=== PATIENT | male | born 2000 | race Caucasian/White ===

== ENCOUNTER 2021-09-08 01:25 | Outpatient (CLI) | payer SELFPAY | END 2021-09-08 01:26 | disposition EMS.NT | LOC: EMS 01:25 | DX: S61.011A Laceration without foreign body of right thumb without damage to nail, initial encounter (principal); W25.XXXA Contact with sharp glass, initial encounter; Y93.89 Activity, other specified; Y92.009 Unspecified place in unspecified non-institutional (private) residence as the place of occurrence of the external cause ==

== ENCOUNTER 2022-06-12 18:28 | Emergency (ER) | payer OTHER ==
--- NOTE | 2022-06-12 19:41 | XRAY Report ---
PROCEDURE: Chest 1 View X-Ray INDICATIONS: cough with soa TECHNIQUE: One view of the chest was acquired. COMPARISON: None. FINDINGS: Surgical changes and devices: None. Lungs and pleura: Subtle infiltrate in the left upper lobe suspicious for pneumonia. No pleural effus ions or pneumothorax. Mediastinum: Mediastinal contours appear normal. Heart size is normal. Bones and chest wall: No suspicious bony lesions. Overlying soft tissues appear unremarkable. IMPRESSION: Suspect left upper lobe pneumonia. Reviewed by: Cj Ku MD on 06/12/2022 7:40 PM PDT Approved by: Cj Ku MD on 06/12/2022 7:40 PM PDT Station ID: [id number]
[2022-06-12] MEDS ORDERED: ONDANSETRON 4 MG/2 ML VIAL IVP STA (20:20)
[2022-06-12] MEDS ORDERED: KETOROLAC 60 MG/2 ML VIAL IM STA (20:20)
[2022-06-12 20:22] VITALS: BP 106/73
[2022-06-12] MEDS ORDERED: ONDANSETRON ODT 4 MG Prepack 2 TL PRN (20:22)
[2022-06-12] MEDS ORDERED: HYDROcod/ACET 5/325 Prepack 4 PO STA (20:22)
--- NOTE | 2022-06-12 20:22 | ED Physician Documentation ---
PD HPI HEENT - Stated complaint Stated Complaint: COUGH/HEADACHE/VOMITING - Chief complaint Chief Complaint: Resp - History obtained from History obtained from: Patient - Additional information Additional information: Previously healthy 21-year-old gentleman has been feeling somewhat sick since he got COVID last month. Over the last few days he developed more of a cough, sometimes productive with green sputum. And today has a lot of headache with coughing and some emesis that is keeping him from eating and drinking. No fevers. Review of Systems Constitutional: denies: Fever, Chills Nose: denies: Rhinorrhea / runny nose, Congestion Throat: reports: Sore throat PD PAST MEDICAL HISTORY - Present Medications Home Medications: Ambulatory Orders Medication Instructions Recorded Confirmed Ibuprofen [Motrin] 600 mg PO Q6H PRN #14 tab 06/12/22 Ondansetron Odt [Zofran] 4 mg TL Q6H PRN #10 tablet 06/12/22 Amoxicillin 2 tab PO TID 5 Days #30 cap 06/13/22 - Allergies Allergies/Adverse Reactions: Allergies Allergy/AdvReac Type Severity Reaction Status Date / Time No Known Drug Allergies Allergy Verified 06/12/22 18:46 PD ED PE NORMAL - Vitals Vital signs reviewed: Yes - General General: Alert and oriented X 3, No acute distress (He appears well with occasional coughing, not too uncomfortable.) - HEENT HEENT: Other (Red tonsillar pillars without exudates.) - Neck Neck: Supple, no meningeal sign, No bony TTP, No adenopathy, Other (Very supple neck without adenopathy) - Cardiac Cardiac: RRR, No murmur - Respiratory Respiratory: No respiratory distress, Clear bilaterally - Abdomen Abdomen: Normal bowel sounds, Soft, Non tender - Back Back: No CVA TTP, No spinal TTP - Derm Derm: Normal color, Warm and dry - Extremities Extremities: No edema, No calf tenderness / cord - Neuro Neuro: Alert and oriented X 3, Normal speech Results - Vitals Vitals: Vital Signs - 24 hr 06/12/22 06/12/22 18:42 20:20 Temperature 36.4 C L Heart Rate 95 102 H Respiratory 18 14 Rate Blood Pressure 114/71 106/73 O2 Saturation 100 98 Oxygen O2 Source Room air PD MEDICAL DECISION MAKING - ED course ED course: 21-year-old well-appearing gentleman with cough, sore throat that appears viral, headache. Medical evidence of meningitis or severe bacterial illness. His jj ngs are clear with a clear chest x-ray. He is medicated here with Toradol and Zofran IM. I felt his CXR was clear, but official read as poss LUIS PNA, I called pt after discharge and updates and rxed abx to [facility] and he will p/u Departure - Departure Disposition: 01 Home, Self Care Clinical Impression: Viral URI Pneumonia Qualifiers: Pneumonia type: due to unspecified organism Laterality: left Lung location: upper lobe of lung Qualified Code(s): J18.9 - Pneumonia, unspecified organism Condition: Good Record reviewed to determine appropriate education?: Yes Instructions: ED Viral Syndrome Prescriptions: Amoxicillin 2 tab PO TID 5 Days #30 cap Ibuprofen [Motrin] 600 mg PO Q6H PRN #14 tab PRN Reason: Pain Ondansetron Odt [Zofran] 4 mg TL Q6H PRN #10 tablet PRN Reason: Nausea / Vomiting Comments: Return if worse, if not better over the next few days, or if new symptoms develop. Forms: Activity restrictions Discharge Date/Time: 06/12/22 20:40
[2022-06-12] MEDS ORDERED: ONDANSETRON 4 MG/2 ML VIAL IM STA (20:35)
== END 2022-06-12 20:40 | disposition home or self-care (01) ==
LOC: ED 18:28
DX: J06.9 Acute upper respiratory infection, unspecified (principal); J18.9 Pneumonia, unspecified organism; Z20.822 Contact with and (suspected) exposure to COVID-19
CPT/HCPCS: 96372; 99284